=== PATIENT | female | born 1960 | race Caucasian/White ===

== ENCOUNTER 2021-09-18 22:59 | Emergency (ER) | payer BC, OTHER ==
[2021-09-18] MEDS ORDERED: hydrOXYzine 25 MG TAB ONE (23:42)
[2021-09-18 23:54] LABS: #Basophils 0.1 thou/uL (0.0-0.2); #Eosinphils 0.1 thou/uL (0.0-0.7); #Lymphocytes 3.5 thou/uL (1.20-3.40); #Monocytes 1.1 thou/uL (0.11-0.59); %Eosinophils 0.7 % (0.0-10.0); %Lymphocytes 27.2 % (21.0-51.0); %Monocytes 8.5 % (0.0-10.0); %Neutrophils 62.6 % (42.0-75.0); Hemoglobin 13.7 g/dL (12.0-16.0); Mean Corpuscular HGB CONC 33.2 g/dL (32.0-36.0); Mean Corpuscular Hemoglobin 32.9 pg (27.0-31.0); Mean Corpuscular Volume 99.1 fL (78.0-98.0); Mean Platelet Volume 6.6 fL (7.4-10.4); Platelet Count 391 thou/uL (130-400); RBC Distribution Width 11.5 % (11.5-14.5); Red Blood Cell (RBC) Count 4.17 mill/uL (4.20-5.40); White Blood Cell (WBC) Count 12.7 thou/uL (4.8-10.8)
[2021-09-19 00:14] LABS: ALT (SGPT) 42 U/L (8-55); AST (SGOT) 40 U/L (5-34); Albumin 3.8 g/dL (3.4-4.8); Alkaline Phosphatase 61 U/L (40-110); Anion Gap 14 mmol/L (10-20); BUN (Urea Nitrogen) 13 mg/dL (9.8-20.1); Bilirubin, Total 0.7 mg/dL (0.2-1.2); Calc. Creatinine Clearance 0 mL/min (70-130); Calcium 8.7 mg/dL (7.8-10.44); Carbon Dioxide 23 mmol/L (23-31); Chloride 95 mmol/L (98-107); Globulin 2.4 g/dL (2.4-3.5); Glucose 111 mg/dL (80-115); Potassium 3.2 mmol/L (3.5-5.1); Protein, Total 6.2 g/dL (5.8-8.1); Sodium 129 mmol/L (136-145)
== END 2021-09-19 01:30 | disposition home or self-care (01) ==
LOC: ERS 22:59
DX: R53.81 Other malaise (principal); R53.83 Other fatigue; Z79.899 Other long term (current) drug therapy
CPT/HCPCS: 36415; 71045; 80053; 85025; 93005

== ENCOUNTER 2024-10-29 12:26 | Outpatient (CLI) | payer MEDICARE, OTHER | END 2024-10-29 12:27 | disposition home or self-care (01) | LOC: MRI 12:26 | PROVIDERS: ATTEND Internal Medicine | DX: C76.0 Malignant neoplasm of head, face and neck (principal); J32.9 Chronic sinusitis, unspecified; R93.89 Abnormal findings on diagnostic imaging of other specified body structures | CPT/HCPCS: 70553; 76376 ==

== ENCOUNTER 2024-11-15 08:33 | Day surgery (SDC) | payer MEDICARE, OTHER ==
[2024-11-15 08:43] LABS: Hematocrit 36.4 % (36.0-47.0); Hemoglobin 11.3 g/dL (12.0-16.0); Mean Corpuscular Hemoglobin 30.0 pg (27.0-31.0); Mean Corpuscular Volume 96.6 fL (78.0-98.0); Platelet Count 259 10x3/uL (130-400); Red Blood Cell (RBC) Count 3.77 mill/uL (4.20-5.40); White Blood Cell (WBC) Count 29.13 10x3/uL (4.8-10.8)
[2024-11-15 09:00] LABS: INR-International Normal Ratio 0.9; Prothrombin Time 12.1 sec (12.0-14.7)
[2024-11-15 09:01] LABS: PTT 27.7 sec (22.9-36.1)
[2024-11-15 09:16] LABS: Platelet Adequacy Comment Platelets Normal; Smudge Cells 1.0 %; Toxic Granulation SLIGHT
[2024-11-15] MEDS ORDERED: Lidocaine 1% PF 5 ML VIAL ONE (09:41)
[2024-11-15] MEDS ORDERED: Sodium Bicarbonate 2.5 MEQ/5 ML SDV ONE (09:42)
== END 2024-11-15 11:45 | disposition home or self-care (01) ==
LOC: CT 08:33
PROVIDERS: ATTEND Internal Medicine
PROC: 079T3ZX Drainage of Bone Marrow, Percutaneous Approach, Diagnostic (ICD-10-PCS; principal; 2024-11-15)
DX: C86.00 Extranodal NK/T-cell lymphoma, nasal type not having achieved remission (principal); E07.9 Disorder of thyroid, unspecified; Z98.49 Cataract extraction status, unspecified eye; Z79.890 Hormone replacement therapy
CPT/HCPCS: 20225; 36000; 77002; 77012; 85025; 85097; 85610; 85730; C1830; 36415; 88184; 88185; 88237; 88264; 88280; 88305; 88311; 88341; 88342; J2250; J3010

== ENCOUNTER 2025-01-15 14:12 | Outpatient (CLI) | payer MEDICARE, OTHER | END 2025-01-15 14:13 | disposition home or self-care (01) | LOC: PET 14:12 | PROVIDERS: ATTEND Internal Medicine | DX: C86.00 Extranodal NK/T-cell lymphoma, nasal type not having achieved remission (principal); C76.0 Malignant neoplasm of head, face and neck; R35.0 Frequency of micturition; J34.89 Other specified disorders of nose and nasal sinuses | CPT/HCPCS: 70553; 76376; 78816; A9552 ==

== ENCOUNTER 2025-02-12 09:04 | Outpatient (CLI) | payer MEDICARE, OTHER | END 2025-02-12 09:05 | disposition home or self-care (01) | LOC: LABBT 09:04 | PROVIDERS: ATTEND Student in an Organized Health Care Education/Training Program | DX: Z01.818 Encounter for other preprocedural examination (principal); C34.11 Malignant neoplasm of upper lobe, right bronchus or lung; J98.4 Other disorders of lung | CPT/HCPCS: 71046 ==

== ENCOUNTER 2025-02-12 09:30 | Inpatient (IN) | payer MEDICARE, OTHER ==
[2025-02-12 11:00] LABS: Anion Gap 11 mmol/L (10-20); BUN (Urea Nitrogen) 20 mg/dL (9.8-20.1); Calc. Creatinine Clearance 0 mL/min (70-130); Calcium 9.3 mg/dL (7.8-10.44); Carbon Dioxide 28 mmol/L (23-31); Chloride 100 mmol/L (98-107); Glucose 90 mg/dL (80-115); Potassium 3.6 mmol/L (3.5-5.1); Sodium 135 mmol/L (136-145)
[2025-02-12 11:04] LABS: #Basophils Less than 0.03 10x3/uL (0.0-0.2); #Eosinophils 0.08 10x3/uL (0.0-0.7); #Monocytes 0.62 10x3/uL (0.11-0.59); #Neutrophils 3.66 10x3/uL (1.40-6.50); %Basophils 0.3 % (0.0-1.0); %Eosinophils 1.3 % (0.0-10.0); %Lymphocytes 26.2 % (21.0-51.0); %Monocytes 10.4 % (0.0-10.0); %Neutrophils 61.6 % (42.0-75.0); Hematocrit 37.1 % (36.0-47.0); Hemoglobin 11.6 g/dL (12.0-16.0); Mean Corpuscular Hemoglobin 29.8 pg (27.0-31.0); Mean Corpuscular Volume 95.4 fL (78.0-98.0); Platelet Count 289 10x3/uL (130-400); Red Blood Cell (RBC) Count 3.89 mill/uL (4.20-5.40); White Blood Cell (WBC) Count 5.95 10x3/uL (4.8-10.8)
[2025-02-13] MEDS ORDERED: Bupivacaine 0.25% HCL 30 ML VIAL ONE (06:34)
[2025-02-13] MEDS ORDERED: Norepinephrine 8 MG/0.9% NS 0 ML ONE (06:49)
[2025-02-13] MEDS ORDERED: Phenylephrine 40 MG/NS 250 ML 0 ML ONE (06:49)
[2025-02-13] MEDS ORDERED: CEFAZOLIN 2 GM VIAL ONE ×2 (06:55→14:45)
[2025-02-13] MEDS ORDERED: fentaNYL PF 100 MCG/2 ML SYRINGE ONE (07:13)
[2025-02-13] MEDS ORDERED: Lidocaine 1% PF 5 ML VIAL ONE (07:13)
[2025-02-13] MEDS ORDERED: Rocuronium Bromide 10 MG/ML (10ML VIAL) ONE (07:13)
[2025-02-13] MEDS ORDERED: PROPOFOL 200 MG/20 ML VIAL ONE (07:36)
[2025-02-13] MEDS ORDERED: SUGAMMADEX SODIUM 200 MG/2 ML VIAL ONE (09:27)
[2025-02-13] MEDS ORDERED: Ondansetron PF 4 MG/2 ML Vial ONE (09:27)
[2025-02-13] MEDS ORDERED: hydrALAZINE 20 MG/ML VIAL SLOW IVP PRN (10:12)
[2025-02-13] MEDS ORDERED: Ondansetron PF 4 MG/2 ML Vial IVP PRN (10:12)
[2025-02-13] MEDS ORDERED: HYDROcodone/Acetaminophen 5/325 mg Tablet PO PRN (10:12)
[2025-02-13 10:28] LABS: #Basophils Less than 0.03 10x3/uL (0.0-0.2); #Eosinophils Less than 0.03 10x3/uL (0.0-0.7); #Monocytes 0.17 10x3/uL (0.11-0.59); #Neutrophils 6.79 10x3/uL (1.40-6.50); %Basophils 0.2 % (0.0-1.0); %Eosinophils 0.2 % (0.0-10.0); %Lymphocytes 17.8 % (21.0-51.0); %Monocytes 2.0 % (0.0-10.0); %Neutrophils 79.4 % (42.0-75.0); Hematocrit 35.7 % (36.0-47.0); Hemoglobin 11.4 g/dL (12.0-16.0); Mean Corpuscular Hemoglobin 29.4 pg (27.0-31.0); Mean Corpuscular Volume 92.0 fL (78.0-98.0); Platelet Count 265 10x3/uL (130-400); Red Blood Cell (RBC) Count 3.88 mill/uL (4.20-5.40); White Blood Cell (WBC) Count 8.55 10x3/uL (4.8-10.8)
[2025-02-13] MEDS ORDERED: HYDROmorphone 0.5 MG/0.5 ML SYRINGE ONE ×2 (10:36→11:01)
[2025-02-13 10:48] LABS: Anion Gap 14 mmol/L (10-20); BUN (Urea Nitrogen) 18 mg/dL (9.8-20.1); Calc. Creatinine Clearance 74 mL/min (70-130); Calcium 8.7 mg/dL (7.8-10.44); Carbon Dioxide 20 mmol/L (23-31); Chloride 107 mmol/L (98-107); Glucose 201 mg/dL (80-115); Potassium 3.0 mmol/L (3.5-5.1); Sodium 138 mmol/L (136-145)
[2025-02-13] MEDS: Gabapentin 300 MG CAP PO SCH ×2 (11:30→21:24)
[2025-02-13] MEDS: Acetaminophen 325 MG TAB PO SCH (12:00)
[2025-02-13] MEDS: Ketorolac Tromethamine 30 MG (1 mL) VIAL IVP SCH (12:00)
[2025-02-13] MEDS ORDERED: MAGIC MOUTHWASH 10 ML UDCUP SSP SCH (13:00)
[2025-02-13] MEDS: Aluminum & Magnesium Hydroxide 60 ML, Lidocaine 2% Viscous Solution 30 ML, diphenhydrAM... SSP SCH (13:30)
[2025-02-13] MEDS: Cyclobenzaprine 10 MG TAB PO SCH (15:15)
[2025-02-13 21:05] VITALS: BMI 19.3
[2025-02-13] MEDS: HYDROcodone/Acetaminophen 5/325 mg Tablet PO PRN (22:41)
[2025-02-14 11:19] VITALS: BMI 19.4
[2025-02-14 15:50] VITALS: BP 118/69; TEMP 97.4
[2025-02-14] MEDS ORDERED: Transdermal Patch Removal LIDOCAINE TOP SCH (21:00)
== END 2025-02-14 17:18 | disposition home or self-care (01) | DRG 165 ==
LOC: SURG A 02-13 05:59 → PCU 02-13 20:56
PROVIDERS: ADMIT Student in an Organized Health Care Education/Training Program; ATTEND Student in an Organized Health Care Education/Training Program
PROC: 0BTC4ZZ Resection of Right Upper Lung Lobe, Percutaneous Endoscopic Approach (ICD-10-PCS; principal; 2025-02-13)
PROC: 07B74ZX Excision of Thorax Lymphatic, Percutaneous Endoscopic Approach, Diagnostic (ICD-10-PCS; 2025-02-13)
PROC: 0BTD4ZZ Resection of Right Middle Lung Lobe, Percutaneous Endoscopic Approach (ICD-10-PCS; 2025-02-13)
PROC: 8E0W4CZ Robotic Assisted Procedure of Trunk Region, Percutaneous Endoscopic Approach (ICD-10-PCS; 2025-02-13)
PROC: 3E03329 Introduction of Other Anti-infective into Peripheral Vein, Percutaneous Approach (ICD-10-PCS; 2025-02-13)
DX: R91.1 Solitary pulmonary nodule (principal); Z79.899 Other long term (current) drug therapy; E03.9 Hypothyroidism, unspecified; Z98.890 Other specified postprocedural states; F20.9 Schizophrenia, unspecified
CPT/HCPCS: 36415; 71045; 71046; 80048; 85025; 86850; 86900; 86901; 88305; 88307; 88331; 88332; 93005; 93010; A4314; C1776; J0169; J0665; J1100; J1171; J1885; J2405; J2704; J3010; Q0163; S2900

== ENCOUNTER 2025-03-03 13:14 | Outpatient (CLI) | payer MEDICARE, OTHER | END 2025-03-03 13:15 | disposition home or self-care (01) | LOC: RAD 13:14 | PROVIDERS: ATTEND Student in an Organized Health Care Education/Training Program | DX: R91.1 Solitary pulmonary nodule (principal) | CPT/HCPCS: 71046 ==